=== PATIENT | male | born 1990 | race Caucasian/White ===

== ENCOUNTER 2022-09-19 16:46 | Emergency (ER) | payer BC, SELFPAY ==
--- NOTE | ~2022-09-19 | XR_ITS ---
EXAMINATION: XR chest 2V DATE: 09/19/2022 17:23 INDICATION: Chest pain. Altered mental status. TECHNIQUE: Frontal and lateral views of the chest were obtained. COMPARISON: None. FINDINGS: There is mild atelectasis at the lung bases. No pleural effusion or pneumothorax. The heart size is normal. IMPRESSION: 1. Mild atelectasis at the lung bases. Reviewed, dictated and finalized at location E.
--- NOTE | ~2022-09-19 | CT_ITS ---
EXAMINATION: CTA chest PE protocol DATE: 09/19/2022 18:00 INDICATION: Chest pain. TECHNIQUE: Computed tomography angiography (CTA) of the chest was performed with 100 mL Omnipaque-350 intravenous contrast timed to evaluate the pulmonary arteries. Coronal maximum intensity projection 3D-reconstructions were created by the technologist. Automated exposure control and iterative reconst ruction technique were employed. The dose-length product was 453.87 mGy-cm. COMPARISON: Chest 2 views 09/19/2022 FINDINGS: The lungs demonstrate mild atelectasis. No pleural effusion. The heart size is normal. No p ericardial effusion. There is no pulmonary embolus. The bones are unremarkable. IMPRESSION: 1. No pulmonary embolus. Sensitivity is moderately decreased by motion artifact. Reviewed, dictated and finalized at location E. IMPRESSION: 1. No pulmonary embolus. Sensitivity is moderately decreased by motion artifact .
--- NOTE | 2022-09-19 16:46 | ECG_ITS ---
Measurements Intervals [place] Rate: 104 P: 61 TN: 167 QRS: 19 QRSD: 97 T: 20 QT: 315 QTc: 416 Interpretive Statements SINUS TACHYCARDIA BORDERLINE ECG NO PREVIOUS ECG AVAILABLE FOR COMPARISON Electronically Signed On 09-19-2022 20:16:39 CDT by Dillon Nichols D.O.
[2022-09-19 16:47] VITALS: BP 134/77; PULSE 104; RESP 14; TEMP 37; O2SAT 98
[2022-09-19 17:03] VITALS: O2SAT 98
[2022-09-19 17:06] LABS: Basophils Absolute Auto 0.1 K/mm3 (0.0-0.1); Basophils Percent Auto 0.7 % (0.2-1.2); Eosinophils Absolute Auto 0.3 K/mm3 (0-0.3); Eosinophils Percent Auto 3.5 % (0-4.4); Hematocrit 40.7 % (42.0-52.0); Hemoglobin 13.6 g/dL (14.0-18.0); Immature Granulocyte Absolute 0.11 K/mm3 (0.00-0.031); Immature Granulocyte Percent A 1.3 % (0-0.5); Lymphocytes Absolute Auto 2.54 K/mm3 (0.9-3.2); Lymphocytes Percent Auto 29.2 % (18.3-44.2); Mean Corpuscular HGB Conc 33.4 g/dl (32-36); Mean Corpuscular Hemoglobin 31.9 pg (26-34); Mean Corpuscular Volume 95.5 fl (80-100); Mean Platelet Volume 9.5 fl (7.4-10.4); Monocytes Absolute Auto 0.9 K/mm3 (0.1-0.6); Neutrophils Absolute Auto 4.8 K/mm3 (1.3-6.7); Neutrophils Percent Auto 55.3 % (45.5-73.1); Platelet Count Result 274 k/mm3 (150-375); Red Blood Count 4.26 M/mm3 (4.6-6.20); Red Cell Distribution Width 13.6 % (11.5-14.5); White Blood Count 8.7 K/mm3 (4.5-10.0)
[2022-09-19 17:19] LABS: INR 0.9
[2022-09-19 17:20] LABS: Alanine Aminotransferase 132 U/L (6-50); Alkaline Phosphatase 55 U/L (38-126); Anion Gap 5 mmol/L (8-16); Aspartate Amino Transferase 139 U/L (17-59); Bilirubin,Total 0.5 mg/dL (0.2-1.3); Blood Urea Nitrogen 7 mg/dL (9-20); Calcium 8.2 mg/dL (8.4-10.2); Carbon Dioxide 34 mmol/L (22-30); Chloride 99 mmol/L (98-107); Estimated CRCL calculation 206 ml/min; Estimated Glomerular Filt Rate > 60; Glucose 96 mg/dL (65-110); Lipase 52 U/L (23-300); Partial Thromboplastin Time 24.5 SECONDS (22.3-36.8); Potassium 4.1 mmol/L (3.4-5.0); Sodium 138 mmol/L (137-145)
[2022-09-19 17:29] LABS: D Dimer 0.79 ug/mL (<0.48); NT Pro B Type Natriuretic Pept 95 pg/mL (19.9-100); Troponin I < 0.012 ng/mL (0.000-0.034)
--- NOTE | 2022-09-19 18:08 | ED.CHESTPAIN ---
HPI - Chest Pain General Chief Complaint: Chest Pain Stated Complaint: cp Time Seen by Provider: 09/19/22 16:47 History of Present Illness HPI narrative: 31-year-old male presents from [facility] significant history of polysubstance abuse presents to the emergency room for evaluation of chest pain that began at 1:00 this morning. Patient does state that he has a significant cardiac history, was told that he has an enlarged left ventricle, was found on multiple echocardiograms at outside facilities. Patient states the pain is constant and is not alleviated or aggravated by any symptoms. Patient states the pain became increasingly worse later in the morning, when he was not given his routine dose of Ativan. Patient states pain radiates up into his neck into his left arm. Neck pain is made worse with rotational movements of the spine. Patient denies any shortness of breath or difficulty breathing nausea vomiting presyncopal or syncopal episodes. Related Data Allergies Allergy/AdvReac Type Severity Reaction Status Date / Time tramadol Allergy Hives Verified 09/19/22 16:57 Review of Systems Review of Systems: CONSTITUTIONAL: Denies fever, chills, or sweats. EYES: Denies visual changes, redness, or discharge. ENT: Denies rhinorrhea, congestion, sore throat, or otalgia. CARDIOVASCULAR: Reports chest pain RESPIRATORY: Denies cough or dyspnea. GASTROINTESTINAL: Denies abdominal pain, nausea, vomiting, or diarrhea. GENITOURINARY: Denies dysuria or hematuria. SKIN: Denies rash or itching. MUSCULOSKELETAL: Denies back pain, joint pain, or myalgia. NEUROLOGIC: Denies headache, numbness, dizziness, or weakness. PSYCHIATRIC: Denies anxiety or depression. Exam Narrative: GENERAL: Well-appearing, well-nourished, no physical limitations, and in no acute distress. HEAD: Normocephalic, atraumatic. EYES: Conjunctivae normal, PERRLA and EOMI. CHEST: Clear to auscultation. No respiratory distress. No wheezes rales or rhonchi. HEART: Regular rate and rhythm. No murmur heard. Normal peripheral pulses. BACK: No CVA tenderness; No cervical/thoracic/lumbar tenderness, step-offs, bony abnormality; FROM EXTREMITIES: Normal range of motion. No edema. No clubbing or cyanosis SKIN: Warm, dry, no rash. No noted wounds NEURO: No focal deficits. Alert and oriented x3. MAEW. CN's II-XI intact bilaterally, normal gait PSYCH: Cooperative. Anxious Course Vital Signs Vital signs: Vital Signs Temperature 37.0 C 09/19/22 16:47 Pulse Rate 104 H 09/19/22 16:47 Respiratory Rate 14 09/19/22 16:47 Blood Pressure 134/77 09/19/22 16:47 Pulse Oximetry 98 09/19/22 16:47 Oxygen Delivery Room Air 09/19/22 16:47 Temperature 37.0 C 09/19/22 16:47 Pulse Rate 104 H 09/19/22 16:47 Respiratory Rate 14 09/19/22 16:47 Blood Pressure 134/77 09/19/22 16:47 Pulse Oximetry 98 09/19/22 17:03 Oxygen Delivery Room Air 09/19/22 17:03 MDM - Chest Pain MDM Narrative Medical decision making narrative: 31-year-old male presented from a chest not rehab facility for evaluation of chest pain that have been present since 1:00 in the morning. Patient stated the pain in radiate up into his neck, made worse with rotation of neck movements. Patient does admit to a cardiac history stating that he was told by 2 different facilities that he is got significant LVH per echo. Patient states that his chest pain became worse later morning when he asked for Ativan and was not given to him. EKG shows a sinus tachycardia with no signs of ischemia. Initial troponin was negative. CBC and CMP were unremarkable. Chest x-ray showed no acute cardio or pulmonary disease. Patient became upset when he was told he was not to be given any Ativan for his chest pain. Patient decided he was going leave AMA. AMA form was signed and I discussed the risks and benefits of leaving the ER prior to completion of his evaluation. Lab Data 09/19/22 16:57 05
--- NOTE | 2022-09-19 18:14 | PC.NURSE ---
patient pulled out own iv and then would not allow this RN to apply dressing to site. patient states he wants to leave AMA because he feels he is being mistreated here patient states that he feels that by not having a phone in his room and not being offered food that he is being mistreated. patient was escorted to waiting room and directed to a phone. patient became verbally abusive with foul language and left
--- NOTE | 2022-09-19 18:19 | PC.NURSE ---
pt walked pulled IV out of his arm, walked out of department. charge nurse attempted to place dressing where iv was removed from pt refused. physician notified. pt signed AMA paperwork.
== END 2022-09-19 18:21 | disposition left against medical advice (07) ==
PROVIDERS: Emergency Medicine; Emergency Provider Nurse Practitioner Family
DX: R07.9 Chest pain, unspecified (principal); R00.0 Tachycardia, unspecified; I51.7 Cardiomegaly
CPT/HCPCS: 36415; 71046; 71275; 80053; 83690; 83880; 84484; 85025; 85380; 85610; 85730; 93005; 99284; Q9967